=== PATIENT | female | born 1990 | race African-American/Black ===

== ENCOUNTER 2016-11-18 07:26 | Emergency (ER) | payer OTHER | END 2016-11-18 08:02 | disposition home or self-care (01) | LOC: NAV ERS 07:26 | DX: M79.671 Pain in right foot (principal); M79.672 Pain in left foot; I10 Essential (primary) hypertension; F31.9 Bipolar disorder, unspecified; F41.9 Anxiety disorder, unspecified; Z79.899 Other long term (current) drug therapy; Z86.711 Personal history of pulmonary embolism | CPT/HCPCS: 99283 ==